=== PATIENT | female | born 1975 | race Caucasian/White ===

== ENCOUNTER 2016-08-21 11:52 | Emergency (ER) | payer OTHER ==
--- NOTE | 2016-08-21 12:04 | UCPHY ---
H & P Patient Type: Established HPI/ROS: HPI CHIEF COMPLAINT: Back pain HISTORY OF PRESENT ILLNESS: this patient very pleasant 40-year-old female with known history of back pain she is L5-S1 disc issues. She tells me she has had a micro diskectomy here before however is currently undergoing physical therapy for ongoing back pain, and some right anterior tibia pain. She sees physical therapy twice a week. She tells me that 2 days ago she had some back manipulation by her physical therapist "had traction done" and this developed worsening low back pain the pain is an achy pain that radiates along her low back low lumbar region. She denies pain radiating down her legs, denies leg weakness, denies trouble walking, denies saddle anesthesia, denies fever, nausea vomiting or dysuria. She presents urgent care requesting some pain medicine and muscle relaxants for acute pain control over the weekend. Past Medical History: Low back pain, L5-S1 disc disease Past Surgical History: Social History: Family History: ROS REVIEW OF SYSTEMS: A comprehensive 10 point review of systems is otherwise negative aside from elements mentioned in the history of present illness. Exam Constitutional triage nursing summary reviewed, vital signs reviewed, awake/ alert. Eyes normal conjunctivae and sclera, EOMI, PERRLA. HENT normal inspection, atraumatic, moist mucus membranes, no epistaxis, neck supple/ no meningismus, no raccoon eyes. Respiratory clear to auscultation bilaterally, normal breath sounds, no respiratory distress, no wheezing. Cardiovascular rate normal, regular rhythm, no murmur, no edema, distal pulses normal. Gastrointestinal soft, non-tender, no rebound, no guarding, normal bowel sounds, no distension, no pulsatile mass. Genitourinary no CVA tenderness. Musculoskeletal Back: no midline lumbar pain, no step-offs, no crepitus, no CVA pain,, full range of motion, no calf swelling, no tenderness of extremities , no meningismus, good pulses, neurovascularly intact. of note this patient has good leg strength, no saddle anesthesia, no signs acute cauda equina on physical exam. Skin pink, warm, & dry, no rash, skin atraumatic. Neurologic awake, alert and oriented x 3, AAOx3, moves all 4 extremities equally, motor intact, sensory intact, CN II-XII intact, normal cerebellar, normal vision, normal speech. Psychiatric normal mood/affect. Heme/Lymph/Immune no lymphadenopathy. Differential Diagnosis: This includes but is not limited to in a particular order low back strain, disc disease, muscle spasm Medical Decision Making: this patient is requesting a pain medicine prescription for Percocet and Valium for acute pain control over the weekend she has declined any imaging here in the emergency room her exam is nonfocal she has no signs of acute cauda equina syndrome. I explained I will prescribe her very limited supply of Percocet very limited supply of Valium. She understands this. She does understand she has worsening pain questions concerns she is return emergency room. Source: Patient - Medical/Surgical History Hx Asthma: No Hx Chronic Respiratory Disease: No Hx Diabetes: No Hx Cardiac Disease: No Hx Renal Disease: No Hx Cirrhosis: No Hx Alcoholism: No Hx HIV/AIDS: No Hx Splenectomy or Spleen Trauma: No Other PMH: ANXIETY, siezure hx, hx ectopic , spont. ab, discectomy, c sect, breast augmentation 2010 - Family History Significant Family History: No pertinent family hx - Social History Smoking Status: Never smoked Constitutional: Initial Vital Signs Temperature (C) 37.1 C 08/21/16 12:11 Heart Rate 88 08/21/16 12:11 Respiratory Rate 18 08/21/16 12:11 Blood Pressure 144/107 H 08/21/16 12:11 O2 Sat (%) 98 08/21/16 12:11 O2 Delivery Mode Room Air Allergies/Adverse Reactions: cephalexin monohydrate [From Keflex] Allergy (Verified 08/21/16 12:10) Home Medications: Medication Instructions Recorded LORazepam [Ativan] 1 mg PO DAILY PRN 12/22/15 clonazePAM [KlonOPIN] 1 mg PO DAILY PRN 12/22/15 Lexapro 06/09/16 Diazepam [Valium 5 MG (*)] 5 mg PO BID #7 tab 08/21/16 Ibuprofen [Motrin (*)] 800 mg PO Q6-8PRN #7 tab 08/21/16 oxyCODONE/APAP 5/325 [Percocet 1 - 2 tab PO Q4H PRN #10 tab 08/21/16 5/325 (*)] Departure - Departure Disposition: Home, Routine, Self-Care Clinical Impression: Back pain Qualifiers: Back pain location: low back pain Chronicity: acute Back pain laterality: bilateral Sciatica presence: without sciatica Qualifier Code: (M54.5) Low back pain Condition: Good Instructions: Acute Low Back Pain (ED), Low Back Strain (ED), Back Pain (ED) Additional Instructions: 1.Return to the urgent care or emergency room if he develops any worsening symptoms questions or concerns. Referrals: ASTRID SAMUELS [Primary Care Provider] - As per Instructions Prescriptions: Ibuprofen [Motrin (*)] 800 mg PO Q6-8PRN #7 tab oxyCODONE/APAP 5/325 [Percocet 5/325 (*)] 1 - 2 tab PO Q4H PRN #10 tab PRN Reason: Pain, Severe Diazepam [Valium 5 MG (*)] 5 mg PO BID #7 tab - PQRS PQRS Measurement: n/a
[2016-08-21 12:14] VITALS: BP 144/107; PULSE 88; RESP 18; TEMP 98.7; O2SAT 98
== END 2016-08-21 12:24 | disposition home or self-care (01) ==
LOC: CED 11:52
DX: M54.5 Low back pain (principal)
CPT/HCPCS: 99214-PO; G0463-PO

== ENCOUNTER → 2016-10-26 | Outpatient (CLI) | payer OTHER ==
[~2016-10-26] MED LIST: GADOBUTROL 10 ML VIAL IVP ONE
== END ==
LOC: FIMAGING 16:35
PROVIDERS: ATTEND Physical Medicine & Rehabilitation
DX: M51.87 Other intervertebral disc disorders, lumbosacral region (principal); M51.86 Other intervertebral disc disorders, lumbar region
CPT/HCPCS: A9585